=== PATIENT | female | born 2000 | race Caucasian/White ===

== ENCOUNTER 2020-10-25 10:02 | Emergency (ER) | payer BC, OTHER ==
[~2020-10-25] VITALS: Ht 160 cm; Wt 75.2 kg
[2020-10-25] MEDS ORDERED: FOLI1TAB11 PO (10:16)
[2020-10-25] MEDS ORDERED: ZOLO25TA PO (10:16)
[2020-10-25] MEDS ORDERED: ZOFR4TAB16 PO (10:16)
[2020-10-25] MEDS ORDERED: MULTTAB20 PO (10:16)
[2020-10-25] MEDS ORDERED: NS 1,000 ML IV ONE (10:50)
[2020-10-25] MEDS ORDERED: ACETAMINOPHEN 500 MG TAB PO ONE (10:50)
[2020-10-25] MEDS ORDERED: LIDOCAINE 5% (LIDODERM) PATCH TD ONE (10:55)
[2020-10-25 11:39] LABS: BASO % 0.2 % (0.0-1.0); EOS % 0.4 % (0.0-3.0); HEMATOCRIT 40.5 % (36.0-47.0); LYMPH # 1.7 10^3/uL (1.5-5.0); MEAN CORPUSCULAR HEMOGLOBIN 30.1 pg (27.0-33.0); MEAN CORPUSCULAR HGB CONC 34.6 g/dl (32.0-36.5); MEAN CORPUSCULAR VOLUME 87.1 fl (80.0-96.0); MONO # 0.5 10^3/uL (0.0-0.8); MONO % 5.5 % (2.0-8.0); NEUTROPHILS # 6.8 10^3/uL (1.5-8.5); NEUTROPHILS % 74.6 % (36.0-66.0); PLATELET COUNT, AUTOMATED 221 10^3/uL (150-450); RED BLOOD COUNT 4.65 10^6/uL (4.00-5.40); WHITE BLOOD COUNT 9.2 10^3/uL (4.0-10.0)
[2020-10-25 12:00] LABS: BLOOD UREA NITROGEN 10 MG/DL (7-18); CALCIUM LEVEL 9.7 MG/DL (8.5-10.1); CARBON DIOXIDE LEVEL 24 MEQ/L (21-32); CHLORIDE LEVEL 104 MEQ/L (98-107); CREATININE FOR GFR 0.63 MG/DL (0.55-1.30); GLOMERULAR FILTRATION RATE > 60.0 (>60); GLUCOSE, FASTING 84 MG/DL (70-100); POTASSIUM SERUM 4.1 MEQ/L (3.5-5.1); SODIUM LEVEL 137 MEQ/L (136-145)
[2020-10-25] MEDS ORDERED: METOCLOPRAMIDE INJ 10MG/2ML VIAL (J2765 PER 1) IV ONE (12:50)
--- NOTE | 2020-10-25 13:50 | REP ---
INDICATION: headache/pressure, 14 weeks preg. COMPARISON: None. TECHNIQUE: Helical scanning is acquired. 5 mm axial images were reformatted. Coronal MPR images were generated. FINDINGS: Bone window settings demonstrate an intact bony calvarium. There is no evidence of skull fracture or incidental bony calvarial lesion. The visualized paranasal sinuses appear clear. No intraorbital abnormality is seen. On soft tissue window setting images; the lateral, third, and fourth ventricles are normal in size and position. Lepe-white differentiation pattern is normal above and below the tentorium. There are is no evidence of intracranial hemorrhage. No mass, edema, infarction, or midline shift is seen. No extra-axial fluid collection is appreciated. IMPRESSION: Negative noncontrast head CT. <Electronically signed by Raudel Omer > 10/25/20 [id number]
[2020-10-25] MEDS ORDERED: LIDO5DIS41 TOP (14:16)
[2020-10-25] MEDS ORDERED: CEPH500C PO (14:16)
[2020-10-25 14:21] VITALS: BP 123/70
[2020-10-25] MEDS ORDERED: **NOTE PATIENT COMMENT** MISC XX ONE (21:00)
[2020-10-25] MEDS ORDERED: **NOTE PATIENT COMMENT** MISC XX SCH (21:00)
== END 2020-10-25 14:23 | disposition home or self-care (01) ==
LOC: M ED 10:02
DX: O26.891 Other specified pregnancy related conditions, first trimester (principal); M54.9 Dorsalgia, unspecified; M54.2 Cervicalgia; R51.9 Headache, unspecified; O23.42 Unspecified infection of urinary tract in pregnancy, second trimester; Z3A.14 14 weeks gestation of pregnancy
CPT/HCPCS: 70450; 80048; 81001; 85025; 96360; 96361; 99284; J2765

== ENCOUNTER 2021-02-14 23:29 | Outpatient (CLI) | payer OTHER ==
[~2021-02-14] VITALS: Ht 160 cm; Wt 86.9 kg
[~2021-02-14 23:29] MED LIST: CEPH500C PO; FOLI1TAB11 PO; LIDO5DIS41 TOP; MULTTAB20 PO; ZOFR4TAB16 PO; ZOLO25TA PO
[2021-02-14 23:40] VITALS: BP 118/69
[2021-02-15 00:52] VITALS: BP 122/73
--- NOTE | 2021-02-15 01:36 | IPNPDOC ---
Obstetrical Progress Note Date of Service Feb 15, 2021 Objective Vital Signs Date Time Temp Pulse Resp B/P (MAP) Pulse Ox O2 Delivery O2 Flow Rate FiO2 02/15/21 00:52 97.4 86 122/73 (89) Assessment and Plan Additional Comments Ms. Collins is a 20yo at 30+1 who presents for decreased FM. She reports she felt minimal movement from her baby at work today. She ate some ice cream and juice and she monitored for movement for 25 minute and did not feel any. She reports there is normal movement now. She otherwise denied VB, LOF, contractions, and a 12 point ROS. NST appropriate for gestational age. VS normal. TAUS cephalic, MVP 6.5cm, +FM, cephalic. Physical exam unremarkable. status is reassuring at this time. Discussed with patient how to perform kick counts. Encouraged hydration and regular nutrition. Educated on routine OB return precautions. Otherwise to follow up at next STEPHALKA FISHER DO Feb 15, 2021 01:36
== END 2021-02-15 00:56 | disposition home or self-care (01) ==
LOC: M LDO 23:29
PROVIDERS: ATTEND Obstetrics & Gynecology
DX: O36.8130 Decreased fetal movements, third trimester, not applicable or unspecified (principal); Z3A.30 30 weeks gestation of pregnancy
CPT/HCPCS: 59025; 96372; G0378; G0463

== ENCOUNTER 2021-03-14 22:15 | Outpatient (CLI) | payer OTHER ==
[~2021-03-14] VITALS: Ht 160 cm; Wt 88.8 kg
[2021-03-14 22:26] VITALS: BP 126/66
[2021-03-14 23:11] LABS: HEMATOCRIT 31.1 % (36.0-47.0); HEMOGLOBIN 10.8 g/dl (12.0-15.5); MEAN CORPUSCULAR HEMOGLOBIN 29.4 pg (27.0-33.0); MEAN CORPUSCULAR HGB CONC 34.7 g/dl (32.0-36.5); MEAN CORPUSCULAR VOLUME 84.7 fl (80.0-96.0); PLATELET COUNT, AUTOMATED 189 10^3/uL (150-450); RED BLOOD COUNT 3.67 10^6/uL (4.00-5.40); WHITE BLOOD COUNT 12.6 10^3/uL (4.0-10.0)
[2021-03-14 23:22] LABS: INR 0.9; PROTHROMBIN TIME 12.5 SECONDS (12.7-14.5)
[2021-03-14 23:23] LABS: PARTIAL THROMBOPLASTIN TIME 24.4 SECONDS (25.9-37.0)
[2021-03-14 23:39] LABS: ALBUMIN 2.6 GM/DL (3.2-5.2); ALT/SGPT 15 U/L (12-78); BILIRUBIN,TOTAL 0.2 MG/DL (0.2-1.0); BLOOD UREA NITROGEN 9 MG/DL (7-18); CALCIUM LEVEL 8.4 MG/DL (8.5-10.1); CARBON DIOXIDE LEVEL 26 MEQ/L (21-32); CHLORIDE LEVEL 106 MEQ/L (98-107); CREATININE FOR GFR 0.59 MG/DL (0.55-1.30); GLOMERULAR FILTRATION RATE > 60.0 (>60); GLUCOSE, FASTING 117 MG/DL (70-100); POTASSIUM SERUM 3.6 MEQ/L (3.5-5.1); SODIUM LEVEL 138 MEQ/L (136-145); TOTAL PROTEIN 5.6 GM/DL (6.4-8.2)
[2021-03-14 23:42] VITALS: BP 116/60
[2021-03-15 01:33] VITALS: BP 113/64
--- NOTE | 2021-03-15 01:49 | IPNPDOC ---
Obstetrical Progress Note Date of Service Mar 15, 2021 Subjective 20 yo G1 @ 34W2D Who presents to L&D after a fall. she reports couple was walking their puppy dog who then decided to JUMP on the patient and she fell on the side walk, hitting the right side of her abdomen at 9:20 PM. Patient reports no pain to the right side or anywhere on the abdomen, she denies any vaginal bleeding or Loss of fluids. she can fell her baby move regularly. she reports that she always has lower back pain and this has not changed since the fall. she denies any fevers, chills, nausea or vomiting. she has no other concerns. VS Vitals reviewed and wnl as below Heart: regular rate and rythm Lungs: normal work of breathing Abd: no bruising noted on the abdomen. no tenderness to palpation. soft uterine tone. TAUS- MVP 5.6cm, normal appearing posterior placenta ext; grossly normal FHT: 130, Mod shania, +accels, -decel---Cat I tracing [place]: irregula contraction around one every 7-10 min Labs FIbrnogen: 383 A/P 20 yo G1 @ 34W2D Who presents to L&D after a fall. She was observed on L&D for 4 hours after the fall. baby remained reactive, patient was not feeling the irregular contractions that were q7-10min. no abdominal bruising or pain on exam. normal placenta and MVP on TAUS. Normal abruption labs. Discussed with patient that due to the mechanism of her fall and reasurring status of her exam, rads and labs, observation for 4 hour is reassuring and she can go home. patient is given strict return precautions. f/u with STEPH as previously scheduled. Objective Vital Signs Date Time Temp Pulse Resp B/P (MAP) Pulse Ox O2 Delivery O2 Flow Rate FiO2 03/15/21 01:33 86 18 113/64 (80) 03/15/21 01:32 97.5 RAINE VERA MD Mar 15, 2021 01:49
== END 2021-03-15 01:32 | disposition home or self-care (01) ==
LOC: M LDO 22:15
PROVIDERS: ATTEND Obstetrics & Gynecology
DX: O9A.213 Injury, poisoning and certain other consequences of external causes complicating pregnancy, third trimester (principal); S30.1XXA Contusion of abdominal wall, initial encounter; Z3A.34 34 weeks gestation of pregnancy; W01.0XXA Fall on same level from slipping, tripping and stumbling without subsequent striking against object, initial encounter; Y92.9 Unspecified place or not applicable; O26.893 Other specified pregnancy related conditions, third trimester; M54.5 Low back pain
CPT/HCPCS: 36415; 59025; 76815; 80053; 85027; 85384; 85460; 85610; 85730; G0378; G0463

== ENCOUNTER 2021-03-15 12:09 | Inpatient (IN) | payer OTHER ==
[2021-03-15] VITALS (22 sets, daily range): BP systolic 98–145; BP diastolic 58–82
[~2021-03-15] VITALS: Ht 160 cm; Wt 87.6 kg
[2021-03-15] MEDS ORDERED: OXYTOCIN DRIP 30 UNITS in IV 1 EA IV PRN (13:10)
[2021-03-15] MEDS: LR 1,000 ML IV SCH ×2 (13:49→19:14)
[2021-03-15] MEDS ORDERED: BETAMETHASONE SOLUSPAN 6MG/ML 5ML VIAL (J0702 PER 3MG) IM SCH (14:00)
[2021-03-15] MEDS ORDERED: PENICILLIN G POTASSIUM IV 5 MU in D5W MINI-BAG PLUS 100 ML IV ONE (14:00)
[2021-03-15 14:20] LABS: BASO % 0.3 % (0.0-1.0); EOS # 0.1 10^3/uL (0.0-0.5); EOS % 0.3 % (0.0-3.0); HEMATOCRIT 34.5 % (36.0-47.0); HEMOGLOBIN 11.6 g/dl (12.0-15.5); LYMPH # 1.6 10^3/uL (1.5-5.0); LYMPH % 10.4 % (24.0-44.0); MEAN CORPUSCULAR HEMOGLOBIN 28.9 pg (27.0-33.0); MEAN CORPUSCULAR HGB CONC 33.6 g/dl (32.0-36.5); MONO # 1.1 10^3/uL (0.0-0.8); MONO % 6.8 % (2.0-8.0); NEUTROPHILS # 12.8 10^3/uL (1.5-8.5); NEUTROPHILS % 81.4 % (36.0-66.0); PLATELET COUNT, AUTOMATED 198 10^3/uL (150-450); RED BLOOD COUNT 4.01 10^6/uL (4.00-5.40); WHITE BLOOD COUNT 15.7 10^3/uL (4.0-10.0)
--- NOTE | 2021-03-15 16:36 | IPNPDOC ---
Text Note Date of Service The patient was seen on 03/15/21. NOTE S: 20yo NIKO [id number] @34+2 for c/o LOF today, denies cramping, or blee ding. States being seen yesterday for evaluation after a fall. O: VSS RNST, fhr 150, +accel, -decel, carlyn irregularly. Speculum exam completed, +pooling, +nitrazine, +ferning cervical exam /-2 A: PPROM at 34wks P: admit to labor and delivery, consult OB physician, consult NICU VS,Fishbone, I+O VS, Fishbone, I+O Laboratory Tests 03/15/21 14:01 Vital Signs Date Time Temp Pulse Resp B/P (MAP) Pulse Ox O2 Delivery O2 Flow Rate FiO2 03/15/21 15:13 98.0 95 18 145/78 (100) Room Air 03/15/21 12:25 98 CHRIS MORALEZ CNM Mar 15, 2021 16:36
[2021-03-15] MEDS ORDERED: PROMETHAZINE INJ 25 MG/ML VIAL (J2550) IV ONE (16:45)
[2021-03-15] MEDS ORDERED: BUTORPHANOL 2 MG/ML INJ (J0595) IV ONE (16:45)
--- NOTE | 2021-03-15 16:55 | IPNPDOC ---
Text Note Date of Service The patient was seen on 03/15/21. NOTE S: 20yo NIKO [id number] @34+2 admitted for PPROM, currently receiving bet amethasone and under expectant management. She is complaining of contraction pain that is 5-6/10, occurring since arrival here, starting in the back and sometimes radiating around to the front. O: VSS, afebrile RNST, fhr 140, moderate variability, no accel, -decel, carlyn irregularly. cervical exam /-2, unchanged A: PPROM at 34+2wks, undergoing steroid therapy and expectant management P: continue to monitor for labor or signs of infection, IV stadol 1 mg and 12.5mg phenergan for pain. The plan is expectant management until steroid complete then reevaluate expectant management vs. induction. VS,Fishbone, I+O VS, Fishbone, I+O Laboratory Tests 03/15/21 14:01 Vital Signs Date Time Temp Pulse Resp B/P (MAP) Pulse Ox O2 Delivery O2 Flow Rate FiO2 03/15/21 15:13 98.0 95 18 145/78 (100) Room Air 03/15/21 12:25 98 SJ LEVI DO Mar 15, 2021 16:55
--- NOTE | 2021-03-15 16:58 | HPEPDOC ---
Obstetrical History & Physical General Date of Admission Mar 15, 2021 at 13:06 History of Present Illness 34+2 with PPROM this AM Chief Complaint: LOF, pre-term Information Provided By: Patient Age: 20 : 1 Term: 0 Pre-term: 0 Abortions: 0 Livin Care Care: Good Care Dating Final EDC: Apr 24, 2021 Final EDC for Daily Update: Apr 24, 2021 Final EDC by: LMP LMP: Jul 18, 2020 Weeks + Days: 34 (+2) Antepartum Course Diagnos(e)s Spinabifida occulta, anxiety, PPROM Height (inches): 63 Pre- weight (lbs.): 168 Admission Weight (lbs.): 189 Change in Weight (lbs.): 21 Past Medical History Past Obstetrical History : Past Obstetrical History: Primgravida 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 History: No pertinent history Past Medical History Medical History spina bifida occulta Surgical History: Tonsilectomy, Other (ACL) Family History Significant Family History: Cancer, Diabetes, Hypertension Social History Marital Status: Family situation: Spouse/partner home Psychosocial History: Anxiety * Smoker: non-smoker Alcohol: Denies Drugs: denies Abuse Violence Screening Have you been hit/kicked/slapp: No Have you been sexually assault: No Imunizations Tdap status: current Allergies Coded Allergies: No Known Allergies (Unverified , 10/25/20) Medications Scheduled Folic Acid (Folic Acid) 1 Mg Tablet, 1 TAB PO DAILY No122/Iron/Folic Acid ( Multi Tablet) 1 Each Tablet, 1 TAB PO DAILY Sertraline Hcl (Zoloft) 25 Mg Tablet, 1 TAB PO DAILY Physical Examination Physical Examination GENERAL: Alert and oriented times three. BREAST: . ABDOMEN: Gravid and non-tender to touch. FETUS: Is vertex (VTX) by sterile vaginal examination (SVE), fetus is vertex (VTX) by Dino. HEART RATE: Regular rate and rhythm. LUNGS: Clear to auscultation (CTA). EXTREMITIES: No edema. No clonus. Deep tendon reflexes (DTRs) +. Vital Signs/I&O Vital Signs Date Time Temp Pulse Resp B/P (MAP) Pulse Ox O2 Delivery O2 Flow Rate FiO2 03/15/21 15:13 98.0 95 18 145/78 (100) Room Air 03/15/21 12:25 98 Laboratory Data 24H LABS Laboratory Tests 2 03/15/21 13:14: Serology Scanned Report Hepatitis B Testing 03/15/21 14:01: Immature Granulocyte % (Auto) 0.8, Neutrophils (%) (Auto) 81.4H, Lymphocytes (%) (Auto) 10.4L, Monocytes (%) (Auto) 6.8, Eosinophils (%) (Auto) 0.3, Basophils (%) (Auto) 0.3, Neutrophils # (Auto) 12.8H, Lymphocytes # (Auto) 1.6, Monocytes # (Auto) 1.1H, Eosinophils # (Auto) 0.1, Basophils # (Auto) 0.0, Nucleated Red Blood Cells % (auto) 0.0, Syphilis Serology NONREACTIVE CBC/BMP Laboratory Tests 03/15/21 14:01 Microbiology Microbiology 03/15/21 Urine Culture, Received Pending 03/15/21 Group B Streptococcus Screen (BERRY), Received Pending Pertinent Laboratoy Data Blood Type: O+ RBC Antibody Screen: Negative HIV: Negative Hepatitis B: Negative Rapid Plasma Reagin: Nonreactive Rubella: Immune Varicella: Immune Chlamydia/Gonorrhea: Negative Group B Streptococcus: Unknown Quad Screen Test: Negative Cystic Fibrosis: Negative Anatomy Ultrasound Placenta Location: Posterior Normal Anatomy: Yes Placenta Previa: No Steroid Therapy Steroid Therapy: Yes Vaginal Examination Dilation: 3 cm Effacement: 50% Station: -2 Cervical Consistency: Medium Cervical Position: Middle Presentation: Cephalic presentation Assessment Heart Rate (FHR): 150 Variability: Moderate Accelerations: Positive Decelerations: None Tocometer Contractions: Yes Frequency: irregular Duration: less than 60 seconds Strength: resting tone palp/soft Multi-drug resistant Organism: No history of MDRO Assessment/Plan Assessment iLto is a 20-year-old (G)1 para (P)0 at 34+2 weeks by 9+4-week ultrasound. Presents to Labor and Delivery (L&D) for LOF. Plan Admit and orient. Clinical Services Assistant and consent. Diet: reg. Group B Streptococcus (GBS) unknown, testing ordered. Initiate GBS prophylaxis. Labs and intravenous (IV) per unit protocol. Counseled steroid for lung maturity. Lactated Ringers (LR): Bolus 1000 mL, then at 125 mL/hr. 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 Anticipate [normal spontaneous delivery ()]. C-S as appropriate. CHRIS MORALEZ CNM Mar 15, 2021 16:58
[2021-03-15] MEDS ORDERED: ACETAMINOPHEN *IV* 1,000 MG in IV 1 EA IV ONE (18:15)
[2021-03-15] MEDS: PENICILLIN G POTASSIUM IV 2.5 MU in IV 1 EA IV SCH ×2 (18:31→22:00)
[2021-03-15] MEDS ORDERED: FENTANYL 2MCG/ML ROPIVACAINE 0.2% IN 0.9% NACL 100ML IVBAG As Ordered ONE (19:16)
--- NOTE | 2021-03-15 19:20 | IPNPDOC ---
Text Note Date of Service The patient was seen on 03/15/21. NOTE Entered room to check on patient as her contraction pain has been unrelieved by 1mg butorphanol, 12.5m phenergan, 1000mg ofirmev and heating pad. Patient is visibly uncomfortable in room and groaning with contractions. Denies vaginal bleeding, nausea, vomiting, urinary issues. Vitals reviewed and within normal limits. a&o x3 nonlabored breathing abd gravid, non tender cervix 5/90/-2 a/p as above now in labor. I offered patient epidural for pain relief and she agreed. Starting bolus now and consult for anesthesia placed. Will continue to monitor. Expect vaginal delivery. VS,Fishbone, I+O VS, Fishbone, I+O Laboratory Tests 03/15/21 14:01 Vital Signs Date Time Temp Pulse Resp B/P (MAP) Pulse Ox O2 Delivery O2 Flow Rate FiO2 03/15/21 18:49 97.2 103 20 136/81 (99) Room Air 03/15/21 12:25 98 SJ LEVI DO Mar 15, 2021 19:20
[2021-03-15] MEDS ORDERED: **PENDING PCN ENTRY XX SCH (21:00)
[2021-03-15] MEDS ORDERED: NALOXONE INJ 0.4MG/1ML VIAL (J2310 PER 1MG) IV PRN (22:50)
[2021-03-15] MEDS ORDERED: ePHEDrine SULFATE 25 MG/5 ML(5MG/ML) SYRINGE IV PRN (22:50)
[2021-03-15] MEDS ORDERED: EPIDURAL COMMENT XX SCH (22:50)
[2021-03-15] MEDS ORDERED: ONDANSETRON 4MG/2ML VIAL IV PRN ×2 (22:50→23:15)
[2021-03-15] MEDS ORDERED: diphenhydrAMINE 50MG/ML VIAL (J1200) IV PRN (22:50)
[2021-03-15] MEDS ORDERED: EPIDURAL/PCA KEYS XX PRN (22:50)
[2021-03-15] MEDS ORDERED: REFRIGERATOR IV KEYS XX PRN (22:50)
[2021-03-15] MEDS ORDERED: FENTANYL/ROPIVACAINE/NACL BAG 100 ML EPIDURAL SCH (22:50)
[2021-03-15] MEDS ORDERED: LACTATED RINGER'S 1000 ML IV PRN (22:50)
[2021-03-15 23:00] LABS: CORD GAS ABE V -4.6; CORD GAS HCO3 V 21.3 MEQ/L; CORD GAS O2 SAT V 73.6 %; CORD GAS PCO2 V 42.3 mmHg; CORD GAS PH V 7.32 UNITS; CORD GAS PO2 V 37.8 mmHg; CORD GAS SBC V 20.1 MEQ/L; CORD GAS TCO2 V 22.6 MEQ/L
[2021-03-15] MEDS ORDERED: OXYTOCIN DRIP 30 UNITS in IV 1 EA IV SCH ×4 (23:15)
[2021-03-15] MEDS ORDERED: DIBUCAINE 1% OINTMENT 30GM TOP PRN (23:15)
[2021-03-15] MEDS ORDERED: RHOGAM 300 MCG (1500 IU) INJ (J2790) IM SCH (23:15)
[2021-03-15] MEDS ORDERED: ACETAMINOPHEN 500 MG TAB PO SCH (23:15)
[2021-03-15] MEDS ORDERED: MEASLES,MUMPS,RUBELLA VACCINE INJ (MMR-II) (90707) SC SCH (23:15)
[2021-03-15] MEDS ORDERED: PROMETHAZINE 25 MG TAB PO PRN (23:15)
[2021-03-15] MEDS ORDERED: DOCUSATE SODIUM 100MG CAPSULE PO PRN (23:15)
[2021-03-15] MEDS ORDERED: METHYLERGONOVINE MALEATE 0.2 MG TAB PO PRN (23:15)
[2021-03-15] MEDS ORDERED: LR 1,000 ML IV SCH (23:15)
[2021-03-15] MEDS ORDERED: SERTRALINE HCL 25 MG TABLET PO ONE (23:35)
[2021-03-15] MEDS: IBUPROFEN 600MG TAB PO SCH (23:35)
[2021-03-15] MEDS: ACETAMINOPHEN 500 MG TAB PO SCH (23:37)
--- NOTE | 2021-03-15 23:53 | DNPDOC ---
[facility] Delivery Note Delivery Note DATE OF DELIVERY: [[id number]] PREDELIVERY DIAGNOSIS: [34]-[2]/7 weeks' gestation and labor, rupture of membranes. POST DELIVERY DIAGNOSIS: Delivered. PROCEDURE: Vacuum-assisted vaginal delivery BRACELET FORM COVERER: Sj Carolina DO ANESTHESIA: Epidural. ESTIMATED BLOOD LOSS: 350 mL. FINDINGS: 5 pound 8 ounce 2488g infant, Score 7/9 DELIVERY SUMMARY: I was called to the patient's room for this 20yo G1 at 34+2, as her cervical exam per nursing was C/C/0 with a bulging bag. I had been called as there some late decelerations in the heart rate tracing. Otherwise the tracing was reassuring with moderate variability. I repeated the cervical exam which was C/C/0 and ruptured the membranes with an amniohook. Clear fluid was noting. During pushing the baseline was 110 with moderate variability and late decelerations. Maternal progress was slow but persistent. At C/C/+2 it became difficult to trace the heart rate however when it was audible the rate was 60s-80s. I verified the head was OA, anesthesia was adequate, station was +2, membranes ruptured, and I counseled the patient on operative vacuum delivery risks including bleeding in the brain/retina and selected the Kiwi vacuum. I explained the alternative would be delivery. The patient agreed. The suction cup was placed on the flexion point and deemed to be free of maternal tissue. With the next set of contractions minimal descent was obtained. On the next set there was one pop-off. The vacuum was reapplied and over the third set of contractions the head delivered. The vacuum was depressurized and removed. The anterior shoulder and corpus delivered without difficulty. There were no nuchal or body cords. The was placed on the maternal abdomen and the cord was cut promptly per the second watch sergeant. Venous blood gas obtained, arterial was unable to be obtained. The placenta was then delivered, inspected and found to be intact. Perineal inspection revealed a second-degree midline laceration repaired with 3-0 vicryl in the usual manner. Hemostasis was noted. The was taken to the NICU due to prematurity. Mother was left in good condition. Vacuum applied at 2230; popoff at 2231, replaced at 2232 and head delivered 2233. Total time with vacuum pressure 3 minutes. SJ CAROLINA. DO Mar 15, 2021 23:53
[2021-03-16 00:10] VITALS: BP 133/71
[2021-03-16 00:50] VITALS: BP 91/50
[2021-03-16] MEDS: IBUPROFEN 600MG TAB PO SCH ×3 (05:23→18:30)
[2021-03-16] MEDS: ACETAMINOPHEN 500 MG TAB PO SCH ×3 (05:24→18:48)
[2021-03-16 06:00] VITALS: BP 98/52
[2021-03-16] MEDS ORDERED: OXYTOCIN DRIP 30 UNITS in IV 1 EA IV SCH ×4 (06:10)
[2021-03-16] MEDS ORDERED: LR 1,000 ML IV SCH (06:10)
[2021-03-16] MEDS ORDERED: ACETAMINOPHEN 500 MG TAB PO SCH (06:10)
[2021-03-16 07:24] LABS: HEMATOCRIT 32.6 % (36.0-47.0); HEMOGLOBIN 11.1 g/dl (12.0-15.5); MEAN CORPUSCULAR HEMOGLOBIN 29.1 pg (27.0-33.0); MEAN CORPUSCULAR VOLUME 85.6 fl (80.0-96.0); PLATELET COUNT, AUTOMATED 183 10^3/uL (150-450); RED BLOOD COUNT 3.81 10^6/uL (4.00-5.40)
--- NOTE | 2021-03-16 07:28 | IPNPDOC ---
Progress Note Date of Service: Mar 16, 2021 Day#: 1 Progress Note SUBJECT: Lito Collins is a 20-year-old 1 now Para 0101 status post uncomplicated vacuum-assisted vaginal delivery at 34+2 weeks' at approximately 2233 hours on 03/15/2021 of a male 5 pounds 8 ounces (2488 grams) with post vaginal laceration and repair, doing well day # 1. She has been ambulating, voiding spontaneously without issue and tolerating regular diet. Breast feeding without issue. Reports lochia is small. Patient is ambulating well. OBJECTIVE: VITAL SIGNS: Within normal limits, afebrile. Alert and oriented times three. Breath sounds clear to auscultation. Heart rate: Regular rate and rhythm, no murmurs, rubs or gallops. Abdomen: Fundus firm at U-2. Soft, NTTP. Extremities: no edema ASSESSMENT: 20-year-old 1 now Para 0101 status post uncomplicated vacuum-assisted vaginal delivery, doing well on day 1. Vitals within normal limits, afebrile, hemodynamically stable with no evidence of infection. Reviewed indications for vacuum-assisted vaginal delivery and patient indicated understanding. PLAN: 1. Discharge to home tomorrow (36 hours). Can consider boarding with baby in NICU. 2. Tylenol and Motrin for pain. 3. Encourage breast feeding and ambulation. 4. Undecided for contraception 5. Routine PP visit in 6 weeks in clinic. 6. Discussed return precautions at length. VS, I&O, 24H, Fishbone Vital Signs/I&O Vital Signs Date Time Temp Pulse Resp B/P (MAP) Pulse Ox O2 Delivery O2 Flow Rate FiO2 03/16/21 06:00 98.8 94 14 98/52 (67) 97 Room Air I&O- Last 24 Hours up to 6 AM0 03/16/21 06:00 Intake Total 2161 ml Output Total 2750 ml Balance -589 ml Laboratory Data 24H LABS Laboratory Tests 2 03/15/21 13:14: Serology Scanned Report Hepatitis B Testing 03/15/21 14:01: Immature Granulocyte % (Auto) 0.8, Neutrophils (%) (Auto) 81.4H, Lymphocytes (%) (Auto) 10.4L, Monocytes (%) (Auto) 6.8, Eosinophils (%) (Auto) 0.3, Basophils (%) (Auto) 0.3, Neutrophils # (Auto) 12.8H, Lymphocytes # (Auto) 1.6, Monocytes # (Auto) 1.1H, Eosinophils # (Auto) 0.1, Basophils # (Auto) 0.0, Nucleated Red Blood Cells % (auto) 0.0, Syphilis Serology NONREACTIVE 03/15/21 22:53: Cord Venous Blood pH 7.320, Cord Venous Blood PCO2 42.3, Cord Venous Blood PO2 37.8, Cord Venous Blood HCO3 21.3, Cord Venous Blood Total CO2 22.6, Cord Venous Base Excess (Actual) -4.6, Cord Venous Base Excess (Standard) 20.1, Cord Venous Blood Oxygen Saturation 73.6 CBC/BMP Laboratory Tests 03/15/21 14:01 Microbiology Microbiology 03/15/21 Urine Culture, Received Pending 03/15/21 Group B Streptococcus Screen (BERRY), Received Pending SJ LEVI DO Mar 16, 2021 07:28
[2021-03-16 07:39] LABS: WHITE BLOOD COUNT 30.6 10^3/uL (4.0-10.0)
[2021-03-16] MEDS: PRENATAL VITAMINS CHEWABLE TABLET PO SCH (09:00)
[2021-03-16] MEDS ORDERED: INFLUENZA QUADRIVALENT PF VACCINE 0.5ML SYRINGE IM ONE (09:00)
[2021-03-16] MEDS: SERTRALINE HCL 25 MG TABLET PO SCH (09:00)
[2021-03-16 14:29] LABS: HEMATOCRIT 33.8 % (36.0-47.0); HEMOGLOBIN 11.4 g/dl (12.0-15.5); MEAN CORPUSCULAR HEMOGLOBIN 29.2 pg (27.0-33.0); MEAN CORPUSCULAR HGB CONC 33.7 g/dl (32.0-36.5); MEAN CORPUSCULAR VOLUME 86.7 fl (80.0-96.0); PLATELET COUNT, AUTOMATED 187 10^3/uL (150-450); WHITE BLOOD COUNT 28.6 10^3/uL (4.0-10.0)
[2021-03-16 17:48] VITALS: BP 107/62
[2021-03-17] MEDS: IBUPROFEN 600MG TAB PO SCH ×2 (00:33→05:59)
[2021-03-17] MEDS: ACETAMINOPHEN 500 MG TAB PO SCH ×2 (00:33→05:59)
[2021-03-17 06:03] VITALS: BP 92/51
[2021-03-17] MEDS ORDERED: DOCU100C16 PO (06:57)
[2021-03-17] MEDS ORDERED: SERT25TA21 PO (06:57)
[2021-03-17] MEDS ORDERED: IBUP-1022 PO (06:57)
[2021-03-17] MEDS: SERTRALINE HCL 25 MG TABLET PO SCH (08:56)
[2021-03-17] MEDS: PRENATAL VITAMINS CHEWABLE TABLET PO SCH (08:57)
[2021-03-17] MEDS ORDERED: INFLUENZA QUADRIVALENT PF VACCINE 0.5ML SYRINGE IM ONE (09:00)
--- NOTE | 2021-03-17 09:16 | DSES ---
DISCHARGE SUMMARY DATE OF ADMISSION: 03/15/2021 DATE OF DISCHARGE: 03/17/2021 This lady is a 20-year-old, 1, now para 1, admitted with rupture of membranes at 34 and 2 weeks of gestation. She had a vacuum assisted vaginal delivery, live male infant, 5 pounds 8 ounces, 2488 grams, scores of 7 and 9 at 1 and 5 minutes, respectively. Venous pH 7.32, base excess -4.6. On her admission, her white count was 15.7. Over the course of the next 2 days, her white count maxed out at 30.6 and yesterday it came down to 28.6. She is afebrile. No evidence of infection. No lochia, foul discharge, no breast tenderness, no incisional pain, no evidence of deep venous thrombosis (DVT), pulmonary embolism (PE), or superficial phlebitis. Based on the fact that she is asymptomatic, we would like to repeat the CBC this morning. Based on that and the fact that all of her vital signs have been normal, including her temperature, we are going to allow her to go home and she will monitor her temperature at home. The rest of the examination is unremarkable. Normocephalic, atraumatic. Neck full range of motion. Pupils equal and reactive to light. Distal pulses are symmetric. No evidence of DVT, PE, or superficial phlebitis. Chest is clear bilaterally to the bases. No wheezes or rhonchi. No costovertebral angle (CVA) tenderness. Abdomen is soft, four quadrant bowel sounds are noted. Uterus is 2 below and is nontender. Perineum is intact. No rashes, lesions, or pruritus. No arthralgia, myalgia, no complaint of joint pain. No complaint of cough, wheeze, shortness of breath, or dyspnea on exertion. No nausea, vomiting, diarrhea, or constipation. No urgency or frequency. In summary, we have a pre-termer, delivered a infant 5 pounds, 8 ounces who is presently in the room with the patient. Plans are to spanish moss picker her medications at [place], 6 week check at [facility] ([facility]). All questions were answered, 20 minute discussion. Patient was discharged improved. Edited: [facility] 03/18/2021 [id number] MTDD
[2021-03-17 10:48] LABS: HEMOGLOBIN 10.6 g/dl (12.0-15.5); MEAN CORPUSCULAR HGB CONC 33.1 g/dl (32.0-36.5); MEAN CORPUSCULAR VOLUME 87.4 fl (80.0-96.0); PLATELET COUNT, AUTOMATED 195 10^3/uL (150-450); RED BLOOD COUNT 3.66 10^6/uL (4.00-5.40); WHITE BLOOD COUNT 19.3 10^3/uL (4.0-10.0)
== END 2021-03-17 10:02 | disposition home or self-care (01) | DRG 807 ==
LOC: M LDO 12:09 → M LDI 13:06 → M OBS 03-16 00:48
PROVIDERS: ADMIT Registered Nurse; ATTEND Registered Nurse
PROC: 10D07Z6 Extraction of Products of Conception, Vacuum, Via Natural or Artificial Opening (ICD-10-PCS; principal; 2021-03-15)
DX: O42.113 Preterm premature rupture of membranes, onset of labor more than 24 hours following rupture, third trimester (principal); Z37.0 Single live birth; Z3A.34 34 weeks gestation of pregnancy; O76 Abnormality in fetal heart rate and rhythm complicating labor and delivery

== ENCOUNTER 2021-10-24 17:40 | Emergency (ER) | payer OTHER ==
[~2021-10-24] VITALS: Ht 160 cm; Wt 87.7 kg
[~2021-10-24 17:40] MED LIST changes: +DOCU100C16 PO; +IBUP-1022 PO; +SERT25TA21 PO
[2021-10-24 17:41] VITALS: BP 130/82
== END 2021-10-24 21:48 | disposition left against medical advice (07) ==
LOC: M ED 17:40
DX: Z53.21 Procedure and treatment not carried out due to patient leaving prior to being seen by health care provider (principal)

== ENCOUNTER → 2023-11-02 | Outpatient (CLI) | payer OTHER, SELFPAY ==
[~2023-11-02] MED LIST changes: +ISOVUE-370 76% 100ML VIAL As Ordered ONE
== END ==
LOC: M RADPRO 11:26
PROVIDERS: ATTEND Obstetrics & Gynecology
DX: N97.9 Female infertility, unspecified (principal)
CPT/HCPCS: 58340; 74740; Q9967

== ENCOUNTER → 2024-03-17 | Outpatient (CLI) | payer OTHER ==
[~2024-03-17] MED LIST changes: -ISOVUE-370 76% 100ML VIAL As Ordered ONE
== END ==
LOC: M PLALAB 13:41
PROVIDERS: ATTEND Obstetrics & Gynecology
DX: Z32.01 Encounter for pregnancy test, result positive (principal)

== ENCOUNTER → 2024-03-19 | Outpatient (CLI) | payer OTHER | LOC: M PLALAB 13:15 | PROVIDERS: ATTEND Obstetrics & Gynecology | DX: Z32.01 Encounter for pregnancy test, result positive (principal) ==

== ENCOUNTER → 2024-08-01 | Outpatient (CLI) | payer OTHER | LOC: M PLALAB 10:11 | PROVIDERS: ATTEND Obstetrics & Gynecology | DX: Z32.01 Encounter for pregnancy test, result positive (principal) ==

== ENCOUNTER → 2024-08-03 | Outpatient (CLI) | payer OTHER | LOC: M LAB 10:29 | PROVIDERS: ATTEND Obstetrics & Gynecology | DX: Z32.01 Encounter for pregnancy test, result positive (principal) ==

== ENCOUNTER → 2024-09-19 | Outpatient (CLI) | payer OTHER ==
[2024-09-19 15:57] LABS: HEMATOCRIT 39.3 % (36.0-47.0); MEAN CORPUSCULAR HEMOGLOBIN 28.9 pg (27.0-33.0); MEAN CORPUSCULAR HGB CONC 33.1 g/dl (32.0-36.5); MEAN CORPUSCULAR VOLUME 87.3 fl (80.0-96.0); PLATELET COUNT, AUTOMATED 248 10^3/uL (150-450); WHITE BLOOD COUNT 9.9 10^3/uL (4.0-10.0)
[2024-09-19 16:54] LABS: Trichomonas vaginalis (AMP) NOT DETECTED (NEGATIVE)
[2024-09-19 17:52] LABS: HIV 1&2 SCREEN NEGATIVE (NEGATIVE)
[2024-09-19 17:58] LABS: HEPATITIS C VIRUS ABY INDEX 0.02 INDEX (<0.8)
[2024-09-19 19:03] LABS: GC DNA AMPLIFICATION NEGATIVE (NEGATIVE)
== END ==
LOC: M PLALAB 13:22
PROVIDERS: ATTEND Advanced Practice Midwife
DX: Z34.80 Encounter for supervision of other normal pregnancy, unspecified trimester (principal); Z3A.00 Weeks of gestation of pregnancy not specified

== ENCOUNTER → 2024-10-21 | Outpatient (REF) | payer OTHER | LOC: M PLALAB 10:43 | PROVIDERS: ATTEND Nurse Practitioner Family | DX: N39.0 Urinary tract infection, site not specified (principal) ==

== ENCOUNTER → 2024-12-25 | Outpatient (CLI) | payer OTHER ==
[~2024-12-25] MED LIST changes: +LIDO1ADH93 TOP; -LIDO5DIS41 TOP
== END ==
LOC: M WHC 07:26
PROVIDERS: ATTEND Nurse Practitioner Family
DX: O32.2XX0 Maternal care for transverse and oblique lie, not applicable or unspecified (principal); O09.212 Supervision of pregnancy with history of pre-term labor, second trimester; O09.292 Supervision of pregnancy with other poor reproductive or obstetric history, second trimester; Z3A.24 24 weeks gestation of pregnancy

== ENCOUNTER → 2024-12-30 | Outpatient (CLI) | payer OTHER ==
[2024-12-30 17:39] LABS: PLATELET COUNT, AUTOMATED 216 10^3/uL (150-450)
[2024-12-30 18:10] LABS: GLUCOSE CHALLENGE TEST 1 HOUR 137 MG/DL (LESS THAN 140)
[2024-12-30 18:48] LABS: HIV 1&2 SCREEN NEGATIVE (NEGATIVE)
[2024-12-30 18:56] LABS: HEPATITIS C VIRUS ABY INDEX 0.09 INDEX (<0.8)
[2024-12-30 19:20] LABS: Trichomonas vaginalis (AMP) NOT DETECTED (NEGATIVE)
[2024-12-30 19:44] LABS: GC DNA AMPLIFICATION NEGATIVE (NEGATIVE)
== END ==
LOC: M PLALAB 14:04
PROVIDERS: ATTEND Nurse Practitioner Family
DX: Z34.80 Encounter for supervision of other normal pregnancy, unspecified trimester (principal)

== ENCOUNTER → 2025-03-16 | Outpatient (REF) | payer OTHER ==
[~2025-03-16] MED LIST changes: -IBUP-1022 PO; +IBUP600T42 PO
== END ==
LOC: M SFHCWAGY 13:12
PROVIDERS: ATTEND Advanced Practice Midwife
DX: Z36.85 Encounter for antenatal screening for Streptococcus B (principal); Z3A.36 36 weeks gestation of pregnancy

== ENCOUNTER 2025-04-01 18:00 | Inpatient (IN) | payer OTHER ==
[~2025-04-01] VITALS: Ht 160 cm; Wt 102.7 kg
[2025-04-01] VITALS (9 sets, daily range): BP systolic 89–127; BP diastolic 53–84
[2025-04-01] MEDS ORDERED: CEPH250REC PO (18:17)
[2025-04-01] MEDS ORDERED: FOLI400T13 PO (18:17)
[2025-04-01] MEDS ORDERED: HOME MED LIST COMPLETE! XX SCH (18:20)
[2025-04-01 19:09] LABS: PLATELET COUNT, AUTOMATED 228 10^3/uL (150-450)
[2025-04-01 19:19] LABS: LDH LACTATE DEHYDROGENASE 220 U/L (120-246)
[2025-04-01 19:20] LABS: ALT/SGPT 13 U/L (7.0-40); AST/SGOT 20 U/L (<34); CREATININE FOR GFR 0.70 MG/DL (0.55-1.30); GLOMERULAR FILTRATION RATE > 90.0 (>60)
[2025-04-01] MEDS ORDERED: CARBOPROST TROMETHAMINE 250 MCG/ML AMP IM PRN (19:20)
[2025-04-01] MEDS ORDERED: OXYTOCIN DRIP 30 UNITS in IV 1 EA IV PRN (19:20)
[2025-04-01] MEDS ORDERED: OXYTOCIN INJ 10UNITS/ML 1ML VIAL IM PRN (19:20)
[2025-04-01] MEDS ORDERED: LIDOCAINE 1% MDV 20 ML VIAL INFIL PRN (19:20)
[2025-04-01] MEDS: OXYTOCIN DRIP 30 UNITS in IV 1 EA IV SCH (19:38)
[2025-04-01] MEDS: PENICILLIN G POTASSIUM 5 MU IV 5 MU in DEXTROSE 5% (D5W) MINI-BAG PLU 100 ML IV STA (19:38)
[2025-04-01] MEDS: LR 1,000 ML IV SCH (19:39)
[2025-04-01 19:48] LABS: HIV 1&2 SCREEN NEGATIVE (NEGATIVE)
[2025-04-01 19:56] LABS: HEPATITIS C VIRUS ABY INDEX < 0.02 INDEX (<0.8)
[2025-04-01 21:27] LABS: TOTAL PROTEIN,RANDOM URINE 30.6 MG/DL (0.0-14.0)
[2025-04-01] MEDS: PEN G POT 3,000,000 UNIT/50 ML 3,000,000 UNIT in IV 1 EA IV SCH (23:45)
[2025-04-02] VITALS (19 sets, daily range): BP systolic 95–143; BP diastolic 54–94; O2SAT 96–98
[2025-04-02] MEDS ORDERED: FENTANYL 2 MCG/ML ROPIVACAINE 0.2% IN 0.9% NACL 100 ML IVBAG As Ordered ONE (00:33)
[2025-04-02] MEDS ORDERED: LACTATED RINGER'S 1000 ML IV PRN (00:45)
[2025-04-02] MEDS ORDERED: ONDANSETRON 4MG 2ML VIAL IV PRN (00:45)
[2025-04-02] MEDS ORDERED: diphenhydrAMINE 50 MG/ML VIAL IV PRN (00:45)
[2025-04-02] MEDS ORDERED: NALOXONE INJ 0.4 MG/1 ML VIAL IV PRN (00:45)
[2025-04-02] MEDS ORDERED: REFRIGERATOR IV KEYS XX PRN (00:45)
[2025-04-02] MEDS ORDERED: EPIDURAL/PCA KEYS XX PRN (00:45)
[2025-04-02] MEDS ORDERED: EPIDURAL COMMENT XX SCH (00:45)
[2025-04-02] MEDS: FENTANYL/ROPIVACAINE/NACL BAG 100 ML EPIDURAL SCH (01:13)
[2025-04-02] MEDS: TRANEXAMIC ACID INJection 1,000 MG in NS 100 ML IV PRN (02:53)
[2025-04-02] MEDS ORDERED: DOCUSATE SODIUM 100 MG CAPSULE PO PRN (03:35)
[2025-04-02] MEDS ORDERED: RHOGAM 300MCG (1500IU) INJ IM SCH (03:35)
[2025-04-02] MEDS ORDERED: ANUSOL HC CREAM 30 GM TOP PRN (03:35)
[2025-04-02] MEDS ORDERED: MEASLES,MUMPS,RUBELLA VACCINE INJ (MMR-II) SQ SCH (03:35)
[2025-04-02] MEDS ORDERED: METHYLERGONOVINE MALEATE 0.2 MG TAB PO PRN (03:35)
[2025-04-02] MEDS ORDERED: MOM 30 ML SUSPENSION UDC PO PRN (03:35)
[2025-04-02] MEDS: OXYTOCIN 30UNITS IN 0.9% NaCl 500ML IV BAG IV ONE (06:30)
[2025-04-02] MEDS ORDERED: ZOLO50TA PO (12:44)
[2025-04-02] MEDS: ACETAMINOPHEN 500 MG TAB PO PRN (14:59)
[2025-04-02] MEDS: IBUPROFEN 600 MG TAB PO PRN (20:20)
[2025-04-03 06:35] VITALS: BP 126/86; O2SAT 100
[2025-04-03] MEDS: PRENATAL VITAMINS CHEWABLE TABLET PO SCH (09:00)
[2025-04-03] MEDS: SERTRALINE HCL 50 MG TAB PO SCH (09:13)
[2025-04-03] MEDS: FLUZONE VACCINE TRI PF(25-26) 0.5ML SYRINGE IM.IMMUN ONE (11:55)
== END 2025-04-03 12:30 | disposition home or self-care (01) | DRG 807 ==
LOC: M LDI 18:00 → M OBS 04-02 04:26
PROVIDERS: ADMIT Advanced Practice Midwife; ATTEND Advanced Practice Midwife
PROC: 3E033VJ Introduction of Other Hormone into Peripheral Vein, Percutaneous Approach (ICD-10-PCS; 2025-04-01)
PROC: 10907ZC Drainage of Amniotic Fluid, Therapeutic from Products of Conception, Via Natural or Artificial Opening (ICD-10-PCS; 2025-04-01)
PROC: 3E0P7GC Introduction of Other Therapeutic Substance into Female Reproductive, Via Natural or Artificial Opening (ICD-10-PCS; 2025-04-01)
PROC: 10E0XZZ Delivery of Products of Conception, External Approach (ICD-10-PCS; principal; 2025-04-02)
DX: O13.4 Gestational [pregnancy-induced] hypertension without significant proteinuria, complicating childbirth (principal); Z37.0 Single live birth; Z3A.38 38 weeks gestation of pregnancy